=== PATIENT | female | born 1955 | race Caucasian/White ===

== ENCOUNTER 2016-09-04 18:56 | Emergency (ER) | payer MEDICARE, OTHER ==
--- NOTE | ~2016-09-04 | CR72 ---
[facility] A Service of [facility] RADIOLOGY TEXT RESULTS PATIENT: LAURA ONEILL LOCATION: [facility] : 57 UNIT #: [id number] AGE: [address]: Kelvin Weeks MD SEX: F ORDER DR: [id number] [facility] [address] [place], [place] [address] [id number] MR#: [id number] Acc #: [id number] NAME: LAURA ONEILL. : 1955 SEX: F STUDY DATE/TIME: 09/04/2016 20:03 UNIT: [facility] ROOM: STUDY DESCRIPTION: CR Chest Single View Portable Attending Physician: Kelvin Weeks M.D. Ordering Physician: Kelvin Weeks M.D. Primary Care Physician: Primary Care Physician No MEDICAL IMAGING REPORT This report is preliminary unless electronic signature is present EXAM Single view of the chest, 09/04/2016 COMPARISON Single view of the chest, 06/13/2015 HISTORY Chest pain and body pain since 09/04/2016. FINDINGS Single view of the chest was obtained. There is a 5.0 cm linear device noted obliquely in the mid aspect of the left lower chest. Correlate clinically as to its extrinsic or intrinsic location within the patient. It is difficult to determine in this single view. It is probably outside the patient's body. The remaining visualized lungs are well aerated. No patchy dense consolidation, pleural effusion or pneumothorax. Heart and bones are unremarkable. Dictated by... Jc Rojas M.D. THIS IS AN ELECTRONICALLY VERIFIED REPORT Jc Rojas M.D. at 09/05/2016 1:32 PM CPR/nadia TD: 09/05/2016 07:56 JOB #: [id number] MEDICAL IMAGING REPORT [facility] A Service of [facility] RADIOLOGY TEXT RESULTS PATIENT: LAURA ONEILL LOCATION: [facility] : 57 UNIT #: [id number] AGE: [address]: Kelvin Weeks MD SEX: F ORDER DR: Page 1 of 1 COPY
--- NOTE | ~2016-09-04 | EKG ---
PATIENT: LAURA ONEILL UNIT #: [id number] Ventricular Rate: 66 BPM Atrial Rate: 66 BPM P-R Interval: 162 ms QRS Duration: 72 ms Q-T Interval: 456 ms QTC Calculation(Bezet): 478 ms P Henley: 47 degrees Calculated R Henley: 43 degrees Calculated T Henley: 31 degrees Diagnosis Line: Normal sinus rhythm Diagnosis Line: Normal ECG Diagnosis Line: When compared with ECG of 12-JUN-2015 13:24, Diagnosis Line: QT has lengthened Diagnosis Line: Confirmed by JAEL PARIKH MD ([id number]) on Diagnosis Line: 09/05/2016 12:34:05 AM INTERPRETING MD: JL CAMPUZANO
[~2016-09-04 18:56] MED LIST: ASPIRIN81 M2 PO; CLOPIDOGREL75 MG PO; ESCITALOPRAM OX10 MG PO; LIPITOR20 MG PO; LIPITOR80 MG PO; LOPRESSOR PO; NORVASC10 MG PO; PEPCID AC20 M2 PO; PRINIVIL10 MG PO
[2016-09-04 19:38] LABS: POC - CKMB <1.0 ng/mL (0.0-7.9); POC - TROPONIN <0.05 ng/mL (<=0.05)
[2016-09-04 20:03] LABS: BASOPHIL# 0.1 X10e3 (0-0.3); BASOPHIL% 0.8 % (0-2.5); EOSINOPHIL# 0.2 X10e3 (0-0.7); EOSINOPHIL% 2.9 % (0.0-7.0); HEMATOCRIT 40.2 % (35.0-45.0); HEMOGLOBIN 13.5 gm/dL (12.0-16.0); LYMPHOCYTE# 2.5 X10e3 (1.0-3.5); MEAN CELL VOLUME 86.9 FL (83-96); MEAN CORPUSCULAR HEMOGLOBIN 29.3 PG (28-34); MEAN CORPUSCULAR HGB CONC 33.7 g/dL (30-36); MEAN PLATELET VOLUME 8.2 FL (6.5-11.5); MONOCYTE# 0.7 X10e3 (0-1.0); MONOCYTE% 9.4 % (3.0-12.0); NEUTROPHIL# 3.9 X10e3 (1.5-7.1); NEUTROPHIL% 52.9 % (40-75); PLATELET COUNT 224 X10e3 (140-420); RED BLOOD COUNT 4.63 X10e (3.90-5.30); RED CELL DISTRIBUTION WIDTH 14.2 % (11.0-15.5); WHITE BLOOD COUNT 7.3 X10e3 (4.0-10.5)
[2016-09-04 20:04] LABS: DIFF IND NO
[2016-09-04 20:23] LABS: ALBUMIN SERUM 3.7 g/dL (3.5-5.0); BILIRUBIN, DIRECT 0.2 mg/dL (0.0-0.2); BILIRUBIN,INDIRECT 0.7 mg/dL (0.0-0.9); BILIRUBIN,TOTAL 0.9 mg/dL (0.2-2.0); BUN/CREATININE RATIO 15.71; CALCIUM SERUM 8.7 mg/dL (8.4-10.2); CREATININE SERUM 0.7 mg/dL (0.6-1.4); GLOM FILT RATE Estimated 94.2 mL/min (>60); POTASSIUM 3.2 mmol/L (3.5-5.1); PROTEIN TOTAL SERUM 6.7 g/dL (6.0-8.3)
== END 2016-09-04 20:58 | disposition home or self-care (01) ==
LOC: CED 18:56
PROVIDERS: Emergency Medicine
DX: E87.6 Hypokalemia (principal); E78.5 Hyperlipidemia, unspecified; J44.9 Chronic obstructive pulmonary disease, unspecified; I10 Essential (primary) hypertension; F17.210 Nicotine dependence, cigarettes, uncomplicated; Z90.710 Acquired absence of both cervix and uterus; Z88.5 Allergy status to narcotic agent
CPT/HCPCS: 36415; 71010; 80048; 80076; 82553; 84484; 85025; 93005; 99285